=== PATIENT | male | born 2000 | race Two or more races ===

== ENCOUNTER 2018-12-17 18:03 | Emergency (ER) | payer OTHER ==
[2018-12-17 18:24] VITALS: BP 135/87
== END 2018-12-17 20:39 | disposition left against medical advice (07) ==
LOC: ED 18:03
DX: Z53.21 Procedure and treatment not carried out due to patient leaving prior to being seen by health care provider (principal); R10.9 Unspecified abdominal pain; Z88.1 Allergy status to other antibiotic agents
CPT/HCPCS: 99282